=== PATIENT | female | born 1935 | race Caucasian/White ===

== ENCOUNTER 2017-05-01 14:00 | Emergency (ER) | payer MEDICARE ==
[~2017-05-01] VITALS: Ht 165.1 cm; Wt 77.1 kg
[~2017-05-01 14:00] MED LIST: ARICEPT5 MG PO; ASPIRIN81 MG; AZITHROMYCIN250 MG PO; Albuterol Sulf NEB; Aspirin PO; COUMADIN5 MG PO; DILTIAZEM 24HR180 MG PO; DONEPEZIL HCL10 MG PO; FISH OIL 1,0001 EAC2; FOLIC ACID1 MG PO; KLOR-CON 1010 MEQ PO; LASIX20 MG PO; LASIX40 MG PO; LIPITOR20 MG PO; MEDROL4 MG/DOSE- PO; METOPROLOL PO; METOPROLOL TART25 MG PO; PANTOPRAZOLE SO40 MG PO; PEPCID20 MG PO; XARELTO10 MG; XOPENEX HFA15 GM IH; XOPENEX1.25 MG/3 INH
[2017-05-01] MEDS ORDERED: TETANUS/DIPHTHERIA TOX ADULT 0.5 ML SYR IM ONE (14:15)
[2017-05-01 15:11] LABS: BASOPHILS # (AUTO) 0.1 (0.0-0.1); BASOPHILS % 1.1 % (0.0-1.0); EOSINOPHILS # (AUTO) 0.4 (0.0-0.4); EOSINOPHILS % 6.1 % (0.0-6.0); HEMOGLOBIN 8.3 g/dL (12.0-16.0); LYMPHOCYTES # (AUTO) 2.3 (1.0-3.2); LYMPHOCYTES % 32.3 % (18.0-39.1); MEAN CORPUSCULAR HEMOGLOBIN 21.2 pg (28-32); MEAN CORPUSCULAR HGB CONC 30.7 g/dL (31-35); MEAN CORPUSCULAR VOLUME 69.1 fL (81-99); MONOCYTES # (AUTO) 0.4 (0.2-0.8); MONOCYTES % 6.1 % (4.4-11.3); NEUTROPHILS # (AUTO) 3.9 (2.1-6.9); PLATELET COUNT 279 x10e3/uL (140-360); RED BLOOD COUNT 3.91 x10e6/uL (3.6-5.1); RED CELL DISTRIBUTION WIDTH 15.9 % (11.7-14.4)
[2017-05-01 15:16] LABS: INR 0.91; PARTIAL THROMBOPLASTIN TIME 30.2 seconds (23.8-35.5); PROTHROMBIN TIME 12.7 seconds (11.9-14.5)
[2017-05-01 15:26] LABS: ALBUMIN 3.5 g/dL (3.5-5.0); ALBUMIN/GLOBULIN RATIO 1.1 (0.8-2.0); CALCIUM 8.6 mg/dL (8.4-10.2); CREATININE, SERUM 1.34 mg/dL (0.57-1.11)
[2017-05-01 15:32] LABS: CREATINE KINASE MB 0.9 ng/mL (0.00-5.00)
--- NOTE | 2017-05-01 15:37 | Diagnostic Imaging Report ---
Exams: Head, maxillofacial and cervical spine CTs without IV contrast History: Trauma, fall Comparison studies:None Technique: Axial images were obtained from the brain, face and cervical spine. Coronal and sagittal reconstructions obtained from the axial data. Intravenous contrast: None Findings: Head CT: Scalp: Right supraorbital soft tissue hematoma with underlying subcutaneous emphysema related to laceration. No retained hyperdense foreign body. Bones: No fractures, blastic or lytic lesions. Brain sulci: Moderately prominent. Ventricles: Moderate compensatory dilatation.. No hydrocephalus. Parenchyma: No mass, acute hemorrhage or acute cortical vascular insults. A few scattered hypodensities in the supratentorial white matter are nonspecific but most compatible with chronic small vessel ischemic changes. Sellar/suprasellar region: No abnormalities Craniocervical junction: The foramen magnum is patent. No Chiari one malformation. Maxillofacial CT: Metallic artifact from dental amalgam somewhat limits evaluation of the oral cavity. Soft tissues: No gross abnormalities. Bones: Minimally depressed fracture along the left medial orbital floor Orbits: No extraocular muscle herniation. Globes are intact. No retrobulbar hemorrhage or retained preseptal or postseptal/intraorbital hyperdense foreign body. Bilateral lens replacements. Paranasal sinuses: Mild nonspecific inflammatory mucosal thickening with small layering hemorrhage in the right maxillary sinus. Mild nonspecific inflammatory mucosal thickening in the left maxillary sinus, right sphenoid sinus and right anterior ethmoids. Cervical spine CT: Fractures: None. Soft tissue injuries: None. Atlantoaxial articulation: Intact. Alignment: Normal lordosis. Minimal anterolisthesis of C5 on C6 and C7 on T1 is likely degenerative in etiology. Cervicomedullary junction: No abnormalities. Patent foramen magnum. Soft tissues: No gross acute abnormalities. Vertebrae: Demineralized bones. No fractures, infection or neoplasm. Degenerative changes: Mild loss of disc height at C5-C6 and at C7-T1. Small disc bulge at C3-C4 and small central disc protrusion at C4-C5 indent the thecal sac. No significant canal stenosis. Multilevel facet arthrosis (worse/severe right and moderate left at C4-C5 and moderate bilaterally at C7-T1). Uncovertebral facet arthrosis at C5-C6 result in moderate left and mild right foraminal stenosis. Incidental findings: Atherosclerotic calcifications in the cervical carotid bulbs, carotid siphons and right intradural vertebral artery. Impression: Head CT: 1. Right supraorbital soft tissue hematoma and laceration. 2. No calvarial fracture or acute intracranial abnormalities. 3. Moderate generalized volume loss. 4. Mild chronic microvascular ischemic changes. Facial CT: 1. Right supraorbital soft tissue hematoma and laceration. 2. Minimally depressed right orbital floor fracture. 3. No associated extraocular muscle herniation, evidence of intraorbital injury or additional acute abnormalities. Cervical spine CT: 1. No cervical spine fracture or subluxation. 2. Degenerative changes as described. 3. Ligament, spinal cord and or vascular abnormalities cannot be excluded on the basis of this examination. Findings discussed Dr. Corrales at 3:32 PM on 05/01/2017. Signed by: Dr. Giovanny Lawson M.D. on 05/01/2017 3:33 PM
--- NOTE | 2017-05-01 15:54 | Diagnostic Imaging Report ---
EXAMINATION: CHEST SINGLE (PORTABLE) INDICATION: Fall \S\ERMD ORDER \S\[id number] \S\1450 \S\Y COMPARISON: 10/25/2015 FINDINGS: AP view TUBES and LINES: None. LUNGS: Lungs are well inflated. Lungs are clear. There is no evidence of pneumonia or pulmonary edema. PLEURA: No pleural effusion or pneumothorax. HEART AND MEDIASTINUM: The cardiomediastinal silhouette is unremarkable. BONES AND SOFT TISSUES: No acute osseous lesion. Soft tissues are unremarkable. UPPER ABDOMEN: No free air under the diaphragm. IMPRESSION: No acute thoracic abnormality. Signed by: Dr. Doug Parikh MD on 05/01/2017 3:50 PM
[2017-05-01] MEDS ORDERED: LIDOCAINE 1% W/EPINEPHRINE 20 ML VIAL INJ ONE (16:30)
[2017-05-01 16:59] VITALS: BP 118/46
== END 2017-05-01 17:10 | disposition home or self-care (01) ==
LOC: ER 14:00
DX: S01.01XA Laceration without foreign body of scalp, initial encounter (principal); W01.0XXA Fall on same level from slipping, tripping and stumbling without subsequent striking against object, initial encounter; Y92.019 Unspecified place in single-family (private) house as the place of occurrence of the external cause; Z23 Encounter for immunization; R07.9 Chest pain, unspecified; I48.91 Unspecified atrial fibrillation; E03.9 Hypothyroidism, unspecified
CPT/HCPCS: 36415; 70450; 70486; 71045; 72125; 80053; 82550; 82553; 84484; 85025; 85610; 85730; 90471; 90714; 93005; 99284

== ENCOUNTER 2022-04-24 15:46 | Inpatient (IN) | payer MEDICARE, OTHER ==
[~2022-04-24] VITALS: Ht 165.1 cm; Wt 68.9 kg
[2022-04-24] MEDS ORDERED: SODIUM CHLORIDE 0.9% 1000ML 1,000 ML IV SCH ×2 (16:15→17:00)
[2022-04-24 16:18] LABS: BASOPHILS # (AUTO) 0.1 (0.0-0.1); BASOPHILS % 0.7 % (0.0-1.0); EOSINOPHILS # (AUTO) 0.2 (0.0-0.4); EOSINOPHILS % 1.2 % (0.0-6.0); HEMATOCRIT 32.5 % (34.2-44.1); HEMOGLOBIN 9.5 g/dL (12.0-16.0); LYMPHOCYTES # (AUTO) 0.9 (1.0-3.2); LYMPHOCYTES % 7.5 % (18.0-39.1); MEAN CORPUSCULAR HEMOGLOBIN 20.3 pg (28-32); MEAN CORPUSCULAR HGB CONC 29.2 g/dL (31-35); MEAN CORPUSCULAR VOLUME 69.4 fL (81-99); MONOCYTES # (AUTO) 0.6 (0.2-0.8); MONOCYTES % 4.8 % (4.4-11.3); NEUTROPHILS # (AUTO) 10.3 (2.1-6.9); NEUTROPHILS % 83.8 % (38.7-80.0); PLATELET COUNT 354 x10e3/uL (140-360); RED BLOOD COUNT 4.68 x10e6/uL (3.6-5.1); RED CELL DISTRIBUTION WIDTH 14.3 % (11.7-14.4)
[2022-04-24 16:22] LABS: CLARITY,URINE HAZY (CLEAR); COLOR,URINE AMBER (YELLOW)
[2022-04-24 16:23] LABS: KETONES,URINE 1+ (NEGATIVE); LEUKOCYTE ESTERASE ,URINE LARGE (NEGATIVE); NITRITE,URINE POSITIVE (NEGATIVE); PROTEIN,URINE DIPSTICK 2+ (NEGATIVE); URINE UROBILINOGEN 1 mg/dL (0.2 - 1)
[2022-04-24 16:26] LABS: WBC,URINE (MAN) >50 /HPF (0-5)
[2022-04-24 16:27] LABS: AMORPHOUS SEDIMENT,URINE FEW (FEW); BACTERIA,URINE MANY /HPF; EPITHELIAL CELLS,URINE FEW /LPF; MUCUS,URINE MODERATE (RARE)
[2022-04-24 16:40] LABS: ALBUMIN 2.8 g/dL (3.5-5.0); ALBUMIN/GLOBULIN RATIO 0.6 (0.8-2.0); ALKALINE PHOSPHATASE 63 IU/L (40-150); ANION GAP 16.7 mmol/L (8-16); BLOOD UREA NITROGEN 23 mg/dL (7-26); BUN/CREATININE RATIO 14 (6-25); CALCIUM 8.5 mg/dL (8.4-10.2); CARBON DIOXIDE 16 mmol/L (22-29); CHLORIDE 114 mmol/L (98-107); CREATININE, SERUM 1.62 mg/dL (0.57-1.11); GLUCOSE 111 mg/dL (74-118); POTASSIUM 3.7 mmol/L (3.5-5.1); SODIUM 143 mmol/L (136-145)
[2022-04-24 16:42] LABS: ALANINE AMINOTRANSFERASE < 6 IU/L (0-55)
[2022-04-24] MEDS ORDERED: CEFTRIAXONE 1 GM VIAL ONE (17:09)
[2022-04-24] MEDS ORDERED: SODIUM CHLORIDE 0.9% 0 ML ONE (17:10)
[2022-04-24 21:00] VITALS: BP 110/58
[2022-04-24 22:00] VITALS: BP 110/58
[2022-04-25] VITALS (7 sets, daily range): BP systolic 125–153; BP diastolic 58–92
[2022-04-25] MEDS: SODIUM CHLORIDE 0.9% 1000ML 1,000 ML IV SCH ×4 (00:48→17:21)
[2022-04-25 04:58] LABS: BASOPHILS # (AUTO) 0.1 (0.0-0.1); BASOPHILS % 0.6 % (0.0-1.0); EOSINOPHILS # (AUTO) 0.1 (0.0-0.4); HEMATOCRIT 27.2 % (34.2-44.1); HEMOGLOBIN 7.9 g/dL (12.0-16.0); LYMPHOCYTES # (AUTO) 1.8 (1.0-3.2); LYMPHOCYTES % 20.8 % (18.0-39.1); MEAN CORPUSCULAR HEMOGLOBIN 20.5 pg (28-32); MEAN CORPUSCULAR VOLUME 70.5 fL (81-99); MONOCYTES # (AUTO) 0.7 (0.2-0.8); NEUTROPHILS % 68.2 % (38.7-80.0); PLATELET COUNT 268 x10e3/uL (140-360); RED BLOOD COUNT 3.86 x10e6/uL (3.6-5.1); RED CELL DISTRIBUTION WIDTH 14.5 % (11.7-14.4)
[2022-04-25 05:14] LABS: ALBUMIN 2.3 g/dL (3.5-5.0); ALBUMIN/GLOBULIN RATIO 0.5 (0.8-2.0); ALKALINE PHOSPHATASE 53 IU/L (40-150); ANION GAP 14.4 mmol/L (8-16); BLOOD UREA NITROGEN 22 mg/dL (7-26); BUN/CREATININE RATIO 17 (6-25); CALCIUM 7.9 mg/dL (8.4-10.2); CARBON DIOXIDE 15 mmol/L (22-29); CHLORIDE 117 mmol/L (98-107); CREATININE, SERUM 1.33 mg/dL (0.57-1.11); GLUCOSE 90 mg/dL (74-118); POTASSIUM 3.4 mmol/L (3.5-5.1); SODIUM 143 mmol/L (136-145)
[2022-04-25 05:17] LABS: ALANINE AMINOTRANSFERASE < 6 IU/L (0-55)
[2022-04-25] MEDS ORDERED: POTASSIUM CHLORIDE 10MEQ EA PO ONE (08:15)
[2022-04-25 10:31] LABS: FERRITIN 350.08 ng/mL (4.63-204.00)
[2022-04-25] MEDS: DONEPEZIL HCL 5 MG TAB PO SCH ×2 (12:06→21:36)
[2022-04-25] MEDS: GUAIFENESIN/DEXTROMETHORPHAN LIQD 5 ML UDC NG PRN ×2 (12:06→21:35)
[2022-04-25] MEDS: PANTOPRAZOLE SOD 40 MG TABEC PO SCH (12:06)
[2022-04-26] VITALS: BP 137/82
[2022-04-26] MEDS: SODIUM CHLORIDE 0.9% 1000ML 1,000 ML IV SCH ×2 (01:18→09:03)
[2022-04-26 05:00] VITALS: BP 124/52
[2022-04-26 08:01] VITALS: BP 136/65
[2022-04-26] MEDS: PANTOPRAZOLE SOD 40 MG TABEC PO SCH ×2 (09:00→17:00)
[2022-04-26 11:31] LABS: BASOPHILS # (AUTO) 0.1 (0.0-0.1); EOSINOPHILS # (AUTO) 0.3 (0.0-0.4); EOSINOPHILS % 3.4 % (0.0-6.0); HEMATOCRIT 29.1 % (34.2-44.1); HEMOGLOBIN 8.4 g/dL (12.0-16.0); LYMPHOCYTES # (AUTO) 2.7 (1.0-3.2); LYMPHOCYTES % 32.3 % (18.0-39.1); MEAN CORPUSCULAR HEMOGLOBIN 20.4 pg (28-32); MEAN CORPUSCULAR HGB CONC 28.9 g/dL (31-35); MEAN CORPUSCULAR VOLUME 70.6 fL (81-99); MONOCYTES # (AUTO) 0.6 (0.2-0.8); MONOCYTES % 6.8 % (4.4-11.3); NEUTROPHILS # (AUTO) 4.6 (2.1-6.9); NEUTROPHILS % 55.2 % (38.7-80.0); PLATELET COUNT 290 x10e3/uL (140-360); RED BLOOD COUNT 4.12 x10e6/uL (3.6-5.1)
[2022-04-26 11:34] VITALS: BP 140/57
[2022-04-26 11:54] LABS: ALBUMIN 2.4 g/dL (3.5-5.0); ALBUMIN/GLOBULIN RATIO 0.6 (0.8-2.0); ANION GAP 15.9 mmol/L (8-16); CALCIUM 8.2 mg/dL (8.4-10.2); CREATININE, SERUM 1.07 mg/dL (0.57-1.11); POTASSIUM 3.9 mmol/L (3.5-5.1)
[2022-04-26] MEDS ORDERED: NYSTATIN 15 GM POWDER UD BTL TOP SCH ×2 (16:00→17:00)
[2022-04-26] MEDS: NYSTATIN 15 GM POWDER UD BTL TOP SCH (17:35)
[2022-04-26 20:00] VITALS: BP 124/65
[2022-04-26 21:14] VITALS: BP 140/57
[2022-04-26] MEDS: DONEPEZIL HCL 5 MG TAB PO SCH (21:53)
[2022-04-27] VITALS: BP 131/98
[2022-04-27 04:00] VITALS: BP 135/64
[2022-04-27 05:33] LABS: BASOPHILS # (AUTO) 0.1 (0.0-0.1); BASOPHILS % 0.8 % (0.0-1.0); EOSINOPHILS # (AUTO) 0.3 (0.0-0.4); EOSINOPHILS % 2.7 % (0.0-6.0); HEMATOCRIT 26.2 % (34.2-44.1); HEMOGLOBIN 8.1 g/dL (12.0-16.0); LYMPHOCYTES # (AUTO) 2.7 (1.0-3.2); LYMPHOCYTES % 25.9 % (18.0-39.1); MEAN CORPUSCULAR HEMOGLOBIN 20.4 pg (28-32); MEAN CORPUSCULAR HGB CONC 30.9 g/dL (31-35); MEAN CORPUSCULAR VOLUME 65.8 fL (81-99); MONOCYTES # (AUTO) 0.5 (0.2-0.8); MONOCYTES % 4.5 % (4.4-11.3); NEUTROPHILS # (AUTO) 6.9 (2.1-6.9); NEUTROPHILS % 65.1 % (38.7-80.0); PLATELET COUNT 279 x10e3/uL (140-360); RED BLOOD COUNT 3.98 x10e6/uL (3.6-5.1); RED CELL DISTRIBUTION WIDTH 14.6 % (11.7-14.4)
[2022-04-27 06:00] LABS: ALBUMIN 2.4 g/dL (3.5-5.0); ALBUMIN/GLOBULIN RATIO 0.6 (0.8-2.0); ANION GAP 12.3 mmol/L (8-16); CALCIUM 8.2 mg/dL (8.4-10.2); CREATININE, SERUM 1.08 mg/dL (0.57-1.11); POTASSIUM 3.3 mmol/L (3.5-5.1)
[2022-04-27 08:08] VITALS: BP 126/59
[2022-04-27 08:29] VITALS: BP 126/59
[2022-04-27] MEDS ORDERED: FUROSEMIDE 20 MG TAB PO SCH (10:00)
[2022-04-27] MEDS ORDERED: POTASSIUM CHLORIDE 10MEQ EA PO ONE (10:00)
[2022-04-27] MEDS ORDERED: METOPROLOL SUCCINATE 25 MG TAB XL PO SCH (10:00)
[2022-04-27] MEDS ORDERED: MEROPENEM 1 GM in SODIUM CHLORIDE 0.9% 100 ML IV SCH (10:00)
[2022-04-27] MEDS: PANTOPRAZOLE SOD 40 MG TABEC PO SCH (10:05)
[2022-04-27] MEDS: NYSTATIN 15 GM POWDER UD BTL TOP SCH (10:05)
[2022-04-27 11:53] VITALS: BP 158/65
[2022-04-27 16:02] VITALS: BP 138/60
[2022-04-27] MEDS ORDERED: TRIMETHOPRIM/SULFAMETHOXAZOLE 160-800 MG TAB PO SCH (21:00)
[2022-04-28] MEDS ORDERED: POTASSIUM CHLORIDE 20 MEQ TAB CR PO SCH (09:00)
== END 2022-04-27 18:59 | DRG 871 ==
LOC: ER 15:50 → ERHOLD 17:31 → MED/SURG2 22:30 → OBSVTOIN 04-25 09:48
PROVIDERS: ADMIT Internal Medicine; ATTEND Internal Medicine
DX: A41.59 Other Gram-negative sepsis (principal); E43 Unspecified severe protein-calorie malnutrition; G93.41 Metabolic encephalopathy; N17.9 Acute kidney failure, unspecified; Z16.24 Resistance to multiple antibiotics; F03.B11 Unspecified dementia, moderate, with agitation; R65.20 Severe sepsis without septic shock; I48.0 Paroxysmal atrial fibrillation; Z79.01 Long term (current) use of anticoagulants; F03.B0 Unspecified dementia, moderate, without behavioral disturbance, psychotic disturbance, mood disturbance, and anxiety; Z66 Do not resuscitate; Z68.25 Body mass index [BMI] 25.0-25.9, adult; D56.3 Thalassemia minor; W19.XXXA Unspecified fall, initial encounter; Y93.9 Activity, unspecified; Y92.129 Unspecified place in nursing home as the place of occurrence of the external cause; E11.9 Type 2 diabetes mellitus without complications
CPT/HCPCS: 36415; 70450; 71045; 80053; 81001; 82728; 83540; 83605; 83880; 84466; 84484; 85025; 87040; 87086; 87186; 93005; 94799; 99252; 99285; G0378; J0696; J7030; J7050